=== PATIENT | female | born 1950 ===

== ENCOUNTER 2020-02-19 05:00 | Day surgery (SDC) | payer OTHER ==
[~2020-02-19 05:00] MED LIST: ENALAPRIL MALEA20 MG PO; PANADOL EXTRA500 MG PO; SIMVASTATIN5 MG PO; VERAP PO
[2020-02-19] MEDS ORDERED: PERCOCET 5-3251 EACH PO (12:26)
== END 2020-02-19 14:00 | disposition home or self-care (01) ==
LOC: CIR.AMB 05:00 → ADM 08:00 → CIR.AMB 08:00
PROVIDERS: ATTEND Surgery
DX: D35.1 Benign neoplasm of parathyroid gland (principal)